=== PATIENT | male | born 1990 | race Caucasian/White ===

== ENCOUNTER 2023-07-30 04:17 | Day surgery (SDC) | payer BC ==
[2023-07-28 09:27] VITALS: BMI 30.8
[2023-07-30] MEDS ORDERED: LIDOCAINE 1%/EPI 1:100000 (20 ML MULTI DOSE VIAL) ONE (12:08)
[2023-07-30] MEDS ORDERED: PROPOFOL 20 ML ONE (12:43)
[2023-07-30] MEDS ORDERED: ROCURONIUM BROMIDE 50 MG/5 ML SYRINGE ONE (12:43)
[2023-07-30] MEDS ORDERED: HYDROmorphone HCl 2 MG/ML VIAL ONE (12:43)
[2023-07-30] MEDS ORDERED: FENTANYL CITRATE/PF 50 MCG/ML VIAL ONE ×4 (12:43→15:20)
[2023-07-30] MEDS ORDERED: MIDAZOLAM HCL 2 MG/2 ML SINGLE DOSE VIAL ONE (12:43)
[2023-07-30] MEDS: ceFAZolin 2 GRAM PREMIX BAG IVPB ONE (12:50)
[2023-07-30] MEDS: OXYMETAZOLINE 0.05% NASAL SOLUTION 15 ML BOTTLE NS ONE (13:10)
[2023-07-30] MEDS ORDERED: DEXMEDETOMIDINE HCL 200 MCG/2 ML IVPB ONE (13:14)
[2023-07-30] MEDS: LIDOCAINE 1%/EPI 1:100000 (20 ML MULTI DOSE VIAL) IJ ONE ×2 (13:20)
[2023-07-30] MEDS ORDERED: BACITRACIN ZINC 15 GM TUBE TOPICAL OINTMENT ONE (14:15)
[2023-07-30] MEDS ORDERED: ONDANSETRON 4 MG/2 ML VIAL ONE (14:18)
[2023-07-30] MEDS ORDERED: NEOSTIGMINE METHYLSULFATE 0.5 MG/1 ML - 10 ML MDV ONE (14:18)
[2023-07-30] MEDS ORDERED: GLYCOPYRROLATE 0.2 MG/1 ML VIAL ONE (14:18)
[2023-07-30] MEDS ORDERED: ONDANSETRON 4 MG/2 ML VIAL IVPUSH PRN (14:48)
[2023-07-30] MEDS ORDERED: LACTATED RINGERS SOLUTION 1,000 ML IV SCH (15:00)
[2023-07-30 15:59] VITALS: RESP 18
[2023-07-30] MEDS ORDERED: ALBUTEROL SO4 0.083% IH SOL 2.5 MG/3 ML VIAL.NEB. NEB ONE (16:21)
[2023-07-30] MEDS: ALBUTEROL SO4 0.5 % INH SOLN 2.5 MG/0.5 ML VIAL.NEB. NEB ONE (16:25)
[2023-07-30] MEDS: SODIUM CHLORIDE 1,000 ML IV SCH (21:00)
[2023-07-30] MEDS ORDERED: IBUPROFEN 600 MG TABLET (FP) PO PRN (21:02)
[2023-07-31] MEDS: oxyCODONE HCL 5 MG TABLET PO PRN (00:44)
[2023-07-31 06:05] VITALS: BP 138/90; PULSE 55; TEMP 97.5
[2023-07-31] MEDS: ACETAMINOPHEN 325 MG TABLET (FP) PO PRN (08:06)
== END 2023-07-31 11:01 | disposition home or self-care (01) ==
LOC: JASU-SURG 04:17 → JASUSAT 04:17 → J4W 08:34 → JASUSAT 07-31 11:01
PROVIDERS: ATTEND Otolaryngology
PROC: 0CTQ0ZZ Resection of Adenoids, Open Approach (ICD-10-PCS; principal; 2023-07-30 12:45)
PROC: 09BM8ZZ Excision of Nasal Septum, Via Natural or Artificial Opening Endoscopic (ICD-10-PCS; 2023-07-30 12:45)
PROC: 09TL7ZZ Resection of Nasal Turbinate, Via Natural or Artificial Opening (ICD-10-PCS; 2023-07-30 12:45)
DX: G47.33 Obstructive sleep apnea (adult) (pediatric) (principal); J35.2 Hypertrophy of adenoids
CPT/HCPCS: 71045-TC-FY; 88304-TC; 88311-TC; 94760